=== PATIENT | female | born 1940 | race Caucasian/White ===

== ENCOUNTER 2016-10-02 22:23 | Observation (INO) | payer MEDICARE, OTHER ==
[~2016-10-02] VITALS: Ht 160 cm; Wt 85.0 kg
[2016-10-02 22:23] VITALS: BP 186/88; PULSE 80; RESP 15; TEMP 97.8; O2SAT 95
[~2016-10-02 22:23] MED LIST: ALBU6.7H INH; AMOX875T20 PO; CALCTAB32 OR; CLON0.5T PO; CYAN1000P IJ; ENAL20TA81 PO; FAMO20 PO; GLUCTAB OR; HYDR-2768; IBUP400T20 PO; MAGN400C2 PO; MEDR4PAK3 PO; NORV5TAB OR; RANI150; SOTA80TA PO; SULF500T35 PO; SYNT88TA OR; VITA200017 OR
[2016-10-02] MEDS ORDERED: MECLIZINE HCL 25 MG TAB PO ONE (22:30)
[2016-10-02] MEDS ORDERED: ONDANSETRON HCL 4 MG/2 ML VIAL IV PUSH ONE (22:30)
--- NOTE | 2016-10-02 22:43 | PD ---
HPI Chief Complaint: Dizziness Time Seen by Provider: 22:37 Travel History International Travel<30 days: No Contact w/Intl Traveler<30days: No Traveled to known affect area: No History of Present Illness HPI 76-year-old female that presents to the ED for evaluation of dizziness and chest pressure. Per patient she developed this around 6:00. Per patient nothing made it better or worst. Per patient she thought she was able to get better on its own. Per patient progressively got more severe around half an hour ago. Per patient she does some chest pressure as well. Per patient she feels like the room and herself were spinning but she also feels like his Pain. Per patient she's been having dry heaving which started as the symptoms progressively got worse. She has not thrown up. She denies any abdominal pain. She does state that she has an extensive history of cardiac disease including CHF, mitral and tricuspid valve regurgitation, on a pacemaker, A. fib , taking blood thinner as well as COPD, diabetes, hypertension and sleep apnea. Patient states that the chest pressure is not severe. Per patient he gets worse when she has a dry heaving. She has not abdominal pain that she dry heaves. She also complains of some back pain which appears to be chronic secondary to spinal stenosis. She denies any falls or injuries. No headache. No blurry vision or double vision. Per patient she feels very nauseous. She states compliance with medications. Per patient she had this time has no pain but the pain when she had it on her chest was about 2 out of 10. Pressure-like. PFSH Past Medical History Arthritis: Yes (RHEUMATOID) Asthma: No Autoimmune Disease: No Blood Disorders: No Heart Rhythm Problems: Yes Cancer: No Cardiovascular Problems: Yes (ABLATION - 2007) High Cholesterol: No Chemotherapy: No Chest Pain: Yes Congestive Heart Failure: No COPD: No Cerebrovascular Accident: No Diabetes: Yes (DIET CONTROLLED) Diminished Hearing: No Endocrine: No GERD: Yes Glaucoma: No Genitourinary: No Headaches: No Hepatitis: No Hiatal Hernia: Yes Hypertension: Yes Immune Disorder: No Kidney Stones: No Musculoskeletal: Yes Neurologic: No Psychiatric: No Reproductive: No Respiratory: No Myocardial Infarction: No Radiation Therapy: No Renal Failure: No Seizures: No Sickle Cell Disease: No Sleep Apnea: No Thyroid Disease: Yes (HYPERTHYROID) Ulcer: No Menopausal: Yes Past Surgical History Abdominal Surgery: Yes (CHOLECYSECTOMY, APPENDECTOMY, ) AICD: No Arteriovenous Shunt: No Cardiac Surgery: No Cholecystectomy: Yes Ear Surgery: No Endocrine Surgery: No Eye Surgery: No Genitourinary Surgery: Yes (BLADDER TACKING) Gynecologic Surgery: Yes (PARTIAL HYSTERECTOMY) Hysterectomy: Yes Insulin Pump: No Joint Replacement: No Oral Surgery: No Pacemaker: No Thoracic Surgery: Yes (LEFT BREAST BENIGN LUMPECTOMY) Other Surgery: Yes Social History Alcohol Use: No Tobacco Use: No Substance Use: No Allergies-Medications (Allergen,Severity, Reaction): Coded Allergies: Cymbalta (Verified Allergy, Severe, Headache, 04/24/12) Savella (Verified Allergy, Severe, Hypertension, 04/24/12) Ambien (Verified Allergy, Mild, Irritation, 04/24/12) Ephedrine (Verified Allergy, Mild, Tachycardia, 04/24/12) Reported Meds & Prescriptions Reported Meds & Active Scripts Active Amoxicillin/Clavulanate P (Amoxicillin/Clavulanate Potassium) 875 Mg Tab 875 Mg PO BID Medrol Dosepak (Methylprednisolone) 4 Mg Steven 4 Mg PO DIRECTED TAKE DIRECTED Proventil Hfa (Albuterol Sulfate) 6.7 Gm Aero 1-2 Puff INH Q4-6HPRN * SHAKE WELL BEFORE USE * Reported Pepcid 20 Mg Tab (Famotidine) 20 Mg Tab 20 Mg PO DAILYPRN Zantac 150 Mg Tab (Ranitidine HCl) 150 Mg Tab 150 Mg .XX DAILYPRN Motrin (Ibuprofen) 400 Mg Tab 400 Mg PO ONCE Sulfasalazine 500 Mg Tab 500 Mg PO QID Metformin Hcl (Metformin HCl) 500 Mg Tab 500 Mg OR DAILY Vitamin D3 (Cholecalciferol) 2,000 Unit Chw 2,000 Iu OR DAILY Magnesium (Magnesium Oxide (Mg Supplement) 400 Mg Cap 400 Mg PO TID Calcium Citrate + D (Calcium Citrate-Vitamin D) + D Tab 1,000 D OR DAILY Cyanocobalamin 1,000 Mcg/1 Ml Inj 1,000 Mcg IJ MONTHLY Synthroid (Levothyroxine Sodium) 88 Mcg Tab 88 Mcg OR DAILY Clonazepam 0.5 Mg Tab 0.5 Mg PO DAILY Norvasc (Amlodipine Besylate) 5 Mg Tab 2.5 Mg OR BID Sotalol Hcl (Sotalol HCl) 80 Mg Tab 80 Mg PO BID Vasotec (Enalapril Maleate) 20 Mg Tab 10 Mg PO BID Hctz (Hydrochlorothiazide) 25 Mg Tab Review of Systems Except as stated in HPI: all other systems reviewed are Neg Physical Exam Narrative GENERAL: SKIN: Warm and dry. HEAD: Atraumatic. Normocephalic. EYES: Pupils equal and round 4 mm reactive to light and accommodation. No scleral icterus. No injection or drainage. ENT: No nasal bleeding or discharge. Mucous membranes pink and moist. Tongue is midline. No uvula deviation. NECK: Trachea midline. No JVD. CARDIOVASCULAR: Regular rate and rhythm. No murmurs, S3, S4. RESPIRATORY: No accessory muscle use. Clear to auscultation. Breath sounds equal bilaterally. GASTROINTESTINAL: Abdomen soft, non-tender, nondistended. Hepatic and splenic margins not palpable. MUSCULOSKELETAL: Extremities without clubbing, cyanosis, or edema. No obvious deformities. Full ROM of the upper and lower extremities bilaterally. 2+ pulses. NEUROLOGICAL: Awake and alert. No obvious cranial nerve deficits. Motor grossly within normal limits. Five out of 5 muscle strength in the arms and legs. Normal speech. PSYCHIATRIC: Appropriate mood and affect; insight and judgment normal. Data Data Orders Electrocardiogram (10/02/16 22:26) Complete Blood Count With Diff (10/02/16 22:26) Comprehensive Metabolic Panel (10/02/16:26) Ckmb (Isoenzyme) Profile (10/02/16 22:26) Troponin I (10/02/16 22:26) B-Type Natriuretic Peptide (10/02/16 22:26) Prothrombin Time / Inr (Pt) (10/02/16 22:26) Act Partial Throm Time (Ptt) (10/02/16 22:26) Lipase (10/02/16:26) Urinalysis - C+S If Indicated (10/02/16 22:26) Magnesium (Mg) (10/02/16 22:26) Thyroid Stimulating Hormone (10/02/16 22:26) Chest, Single Ap (10/02/16 22:26) Ct Brain W/O Iv Contrast(Rout) (10/02/16 22:26) Iv Access Insert/Monitor (10/02/16 22:26) Ecg Monitoring (10/02/16 22:26) Oximetry (10/02/16 22:26) Ondansetron Inj (Zofran Inj) (10/02/16 22:30) Meclizine (Antivert) (10/02/16 22:30) MDM Medical Decision Making Medical Screen Exam Complete: Yes Emergency Medical Condition: Yes Medical Record Reviewed: Yes Differential Diagnosis Syncope versus dizziness versus ACS versus chest pain versus a typical chest pain versus hypotension versus orthostatic hypotension Narrative Course 76-year-old female that presents to the ED for evaluation of dizziness. Patient was properly examined and was found to have signs and symptoms of unclear etiology this time. Definite concern for ACS as well as vertigo. Accommodation is times for labs and imaging. Patient agrees with this plan. Patient was given meclizine as well as Zofran. Patient will be signed out to my attending physician with Dr. Kraft pending labs and disposition. Manuel Turner Oct 02, 2016 22:43
[2016-10-02 23:02] LABS: AUTOMATED NEUTROPHIL # 8.1 TH/MM3 (1.8-7.7); BASOPHIL # 0.1 TH/MM3 (0-0.2); BASOPHIL % 0.6 % (0.0-2.0); EOSINOPHIL # 0.3 TH/MM3 (0-0.4); EOSINOPHIL % 2.9 % (0.0-4.0); HEMATOCRIT 39.8 % (35.0-46.0); HEMO FLAGS DIFF FINAL; LYMPH % 13.4 % (9.0-44.0); LYMPHOCYTE # 1.4 TH/MM3 (1.0-4.8); MEAN CELL VOLUME 88.7 FL (80.0-100.0); MEAN CORPUSCULAR HGB CONC 33.9 % (32.0-36.0); MONO % 5.8 % (0.0-8.0); NEUT % 77.3 % (16.0-70.0); PLATELET COUNT 187 TH/MM3 (150-450); RED BLOOD COUNT 4.49 MIL/MM3 (4.00-5.30); RED CELL DISTRIBUTION WIDTH 13.6 % (11.6-17.2); WHITE BLOOD COUNT 10.4 TH/MM3 (4.0-11.0)
--- NOTE | 2016-10-02 23:09 | RADRPT ---
EXAM DATE/TIME: 10/02/2016 22:40 [facility] COMPARISON: No previous studies available for comparison. INDICATIONS : Syncope. Weakness. MEDICAL HISTORY : None. SURGICAL HISTORY : None. ENCOUNTER: Initial ACUITY: 1 day PAIN SCORE: 6/10 LOCATION: Bilateral chest FINDINGS: A single view of the chest demonstrates the lungs to be symmetrically aerated without evidence of mas s, infiltrate or effusion. The cardiomediastinal contours are unremarkable. Osseous structures are intact. CONCLUSION: Normal examination. Left subclavian tripolar pacer in good position. Abilio Ahuja MD on October 02, 2016 at 23:07 Board Certified Radiologist. This report was verified electronically.
[2016-10-02 23:14] LABS: APTT (PATIENT) 34.6 SEC (24.3-30.1); INTERNATIONAL NORMALIZED RATIO 2.7 RATIO; PROTHROMBIN TIME - PATIENT 31.5 SEC (9.8-11.6)
[2016-10-02 23:21] LABS: ALT (GPT) 71 U/L (10-53); ANION GAP 9 MEQ/L (5-15); AST (GOT) 100 U/L (15-37); BICARBONATE 28.9 MEQ/L (21.0-32.0); BLOOD UREA NITROGEN 22 MG/DL (7-18); CHLORIDE 103 MEQ/L (98-107); GLOMERULAR FILTRATION RATE 62 ML/MIN (>89); POTASSIUM 3.8 MEQ/L (3.5-5.1); SODIUM (NA) 141 MEQ/L (136-145)
[2016-10-02] MEDS ORDERED: FURO80TA PO (23:22)
[2016-10-02] MEDS ORDERED: ARMO30TA PO (23:22)
[2016-10-02] MEDS ORDERED: CYAN1000P IM (23:22)
[2016-10-02] MEDS ORDERED: CARV12.52 PO (23:22)
[2016-10-02] MEDS ORDERED: CHOL1CAP13 PO (23:22)
[2016-10-02] MEDS ORDERED: METF500T PO (23:22)
[2016-10-02] MEDS ORDERED: ENAL10TA PO (23:22)
[2016-10-02] MEDS ORDERED: MAGN200T PO (23:22)
[2016-10-02] MEDS ORDERED: FOLI1TAB6 (23:22)
[2016-10-02] MEDS ORDERED: ALEN1TAB48 PO (23:22)
[2016-10-02] MEDS ORDERED: POTA-163 PO (23:22)
[2016-10-02] MEDS ORDERED: WARF-23 PO (23:22)
[2016-10-02] MEDS ORDERED: CLON0.5T PO (23:22)
[2016-10-02] MEDS ORDERED: ATOR10TA15 PO (23:22)
[2016-10-02 23:30] VITALS: BP_SYST 169; BP_SYST 186; BP_SYST 187; BP_DIAS 77; BP_DIAS 84; BP_DIAS 88; RESP 16; RESP 19; RESP 20
[2016-10-02 23:30] LABS: ALKALINE PHOSPHATASE 56 U/L (45-117); CREATINE KINASE 146 U/L (26-192); TOTAL BILIRUBIN ADULT 0.9 MG/DL (0.2-1.0)
--- NOTE | 2016-10-02 23:37 | RADRPT ---
EXAM DATE/TIME: 10/02/2016 23:13 [facility] COMPARISON: No previous studies available for comparison. INDICATIONS : Syncope. RADIATION DOSE: 30.85 CTDIvol (mGy) MEDICAL HISTORY : Gastroesophageal reflux disease. Hypertension. Diabetes mellitus type 2. SURGICAL HISTORY : Appendectomy. Cholecystectomy.Hysterectomy.Left breast lumpectomy. ENCOUNTER: Initial ACUITY: 1 day PAIN SCALE: 0/10 LOCATION: cranial TECHNIQUE: Multiple contiguous axial images were obtained of the head. Using automated exposure control and adj ustment of the mA and/or kV according to patient size, radiation dose was kept as low as reasonably a chievable to obtain optimal diagnostic quality images. DICOM format image data is available electro nically for review and comparison. FINDINGS: CEREBRUM: The ventricles are normal for age. No evidence of midline shift, mass lesion, hemorrhage or acute in farction. No extra-axial fluid collections are seen. POSTERIOR FOSSA: The cerebellum and brainstem are intact. The 4th ventricle is midline. The cerebellopontine angle i s unremarkable. EXTRACRANIAL: The visualized portion of the orbits is intact. SKULL: The calvaria is intact. No evidence of skull fracture. CONCLUSION: Normal examination. On the first image there is some soft tissue fullness in the anterior aspect of t he foramen magnum which could be prominent vasculature. No evidence of an acute fracture or traumati c injury is identified. Outpatient brain MRI could be performed to further evaluate this area. Abilio Ahuja MD on October 02, 2016 at 23:35 Board Certified Radiologist. This report was verified electronically.
[2016-10-02 23:43] LABS: CKMB 4.9 NG/ML (0.5-3.6)
[2016-10-02] MEDS ORDERED: SODIUM CHLOR 0.9% 1000 ML INJ 1,000 ML IV SCH (23:45)
[2016-10-02] MEDS ORDERED: SODIUM CHLORID 0.9% 500 ML INJ 500 ML IV ONE (23:45)
--- NOTE | 2016-10-02 23:48 | PD ---
Physical Exam Date Seen by Provider: Oct 02, 2016 Time Seen by Provider: 23:00 Narrative I am seeing the patient with Sabino Turner PA-C. 76-year-old female with history of paced rhythm, presents today with complaints of dizziness with associated nausea vomiting. Patient also reports chest pressure. Patient reports chest pressure at 2 out of 10 in intensity. She reports the dizziness is more positional in nature. There is no dizziness when not moving or standing. Patient does have a history of atrial fibrillation and has a pacemaker in place. The patient does have a paced rhythm with a rate of 80. She describes the chest pain is chest pressure. No radiation. Data Data Last Documented VS Vital Signs Date Time Temp Pulse Resp B/P Pulse Ox O2 Delivery O2 Flow Rate FiO2 10/02/16 23:30 80 16 169/77 81 20 186/88 80 19 187/84 10/02/16 22:23 97.8 95 10/02/16 22:23 Room Air Orders Electrocardiogram (10/02/16 22:26) Complete Blood Count With Diff (10/02/16 22:26) Comprehensive Metabolic Panel (10/02/16 22:26) Ckmb (Isoenzyme) Profile (10/02/16 22:26) Troponin I (10/02/16 22:26) B-Type Natriuretic Peptide (10/02/16 22:26) Prothrombin Time / Inr (Pt) (10/02/16 22:26) Act Partial Throm Time (Ptt) (10/02/16 22:26) Lipase (10/02/16 22:26) Urinalysis - C+S If Indicated (10/02/16 22:26) Magnesium (Mg) (10/02/16 22:26) Thyroid Stimulating Hormone (10/02/16 22:26) Chest, Single Ap (10/02/16 22:26) Ct Brain W/O Iv Contrast(Rout) (10/02/16 22:26) Iv Access Insert/Monitor (10/02/16 22:26) Ecg Monitoring (10/02/16 22:26) Oximetry (10/02/16 22:26) Ondansetron Inj (Zofran Inj) (10/02/16 22:30) Meclizine (Antivert) (10/02/16 22:30) Orthostatic Vital Signs (10/02/16 22:41) CKMB (10/02/16 22:15) CKMB% (10/02/16 22:15) Sodium Chlorid 0.9% 500 Ml Inj (Ns 500 M (10/02/16 23:45) Sodium Chlor 0.9% 1000 Ml Inj (Ns 1000 M (10/02/16 23:45) Bedside Glucose MARIA LUISA.AC&HS (10/03/16 01:56) Blood Glucose Goal (Criteria) (10/03/16 01:56) Hypoglycemia 70 Mg/Dl Or < (10/03/16 01:56) Notify Dr: Other (10/03/16 01:56) Dextrose 50% In Pato (Vial) Inj (D50w (Vi (10/03/16 02:00) Glucagon Inj (Glucagon Inj) (10/03/16 02:00) Insulin Aspart Supplemtl Scale (Novolog (10/03/16 07:00) Place In Observation (10/03/16 ) Vital Signs (Adult) Q4H (10/03/16 01:56) Neuro Checks Q4H (10/03/16 01:56) Activity Oob With Assistance (10/03/16 01:56) Intake + Output MARIA LUISA.QSHIFT (10/03/16 01:56) Diet 1800 Ada Cons Carb (10/03/16 Breakfast) Sodium Chlor 0.9% 1000 Ml Inj (Ns 1000 M (10/03/16 01:56) Sodium Chloride 0.9% Flush (Ns Flush) (10/03/16 02:00) Sodium Chloride 0.9% Flush (Ns Flush) (10/03/16 09:00) Ondansetron Inj (Zofran Inj) (10/03/16 02:00) Comprehensive Metabolic Panel (10/04/16 06:00) Complete Blood Count With Diff (10/04/16 06:00) Prothrombin Time / Inr (Pt) (10/04/16 06:00) Pt Request For Service (10/03/16 01:56) Acetaminophen (Tylenol) (10/03/16 02:00) Docusate Sodium-Senna (Toya-Colace) (10/03/16 09:00) Magnesium Hydroxide Liq (Milk Of Magnesi (10/03/16 02:00) Sennosides (Senokot) (10/03/16 02:00) Bisacodyl Supp (Dulcolax Supp) (10/03/16 02:00) Lactulose Liq (Lactulose Liq) (10/03/16 02:00) Cta Neck W Iv Contrast W 3d (10/03/16 ) Cta Brain W Iv Contrast W 3d (10/03/16 ) Meclizine (Antivert) (10/03/16 02:00) Lorazepam Inj (Ativan Inj) (10/03/16 02:00) Atorvastatin (Lipitor) (10/03/16 21:00) Carvedilol (Coreg) (10/03/16 09:00) Clonazepam (Klonopin) (10/03/16 02:00) Furosemide (Lasix) (10/03/16 09:00) Warfarin (Coumadin) (10/03/16 16:00) Warfarin (Coumadin) Pt Teach (Coumadin B (10/03/16 16:00) Admit Order (Ed Use Only) (10/03/16 02:19) Labs Laboratory Tests Test 10/02/16 22:15 White Blood Count 10.4 TH/MM3 Red Blood Count 4.49 MIL/MM3 Hemoglobin 13.5 GM/DL Hematocrit 39.8 % Mean Corpuscular Volume 88.7 FL Mean Corpuscular Hemoglobin 30.0 PG Mean Corpuscular Hemoglobin 33.9 % Concent Red Cell Distribution Width 13.6 % Platelet Count 187 TH/MM3 Mean Platelet Volume 10.6 FL Neutrophils (%) (Auto) 77.3 % Lymphocytes (%) (Auto) 13.4 % Monocytes (%) (Auto) 5.8 % Eosinophils (%) (Auto) 2.9 % Basophils (%) (Auto) 0.6 % Neutrophils # (Auto) 8.1 TH/MM3 Lymphocytes # (Auto) 1.4 TH/MM3 Monocytes # (Auto) 0.6 TH/MM3 Eosinophils # (Auto) 0.3 TH/MM3 Basophils # (Auto) 0.1 TH/MM3 CBC Comment DIFF FINAL Differential Comment Prothrombin Time 31.5 SEC Prothromb Time International 2.7 RATIO Ratio Activated Partial 34.6 SEC Thromboplast Time Sodium Level 141 MEQ/L Potassium Level 3.8 MEQ/L Chloride Level 103 MEQ/L Carbon Dioxide Level 28.9 MEQ/L Anion Gap 9 MEQ/L Blood Urea Nitrogen 22 MG/DL Creatinine 0.89 MG/DL Estimat Glomerular Filtration 62 ML/MIN Rate Random Glucose 171 MG/DL Calcium Level 8.5 MG/DL Magnesium Level 2.0 MG/DL Total Bilirubin 0.9 MG/DL Aspartate Amino Transf 100 U/L (AST/SGOT) Alanine Aminotransferase 71 U/L (ALT/SGPT) Alkaline Phosphatase 56 U/L Total Creatine Kinase 146 U/L Creatine Kinase MB 4.9 NG/ML Troponin I LESS THAN 0.02 NG/ML B-Type Natriuretic Peptide 259 PG/ML Total Protein 6.7 GM/DL Albumin 3.6 GM/DL Lipase 138 U/L Thyroid Stimulating Hormone 5.560 uIU/ML 3rd Gen [facility] Medical Record Reviewed: Yes Supervised Visit with MADELINE: Yes Narrative Course 76-year-old female presents with complaints of dizziness, nausea vomiting, shortness of breath and chest pressure. The patient has history of atrial fibrillation and is on anticoagulation for this. Patient also has a paced rhythm on EKG. She's been given meclizine I V times one dose. She's been given I V fluids. Her BUN and creatinine are slightly elevated. Given the fact that she has dizziness and is still slightly dizzy after the meclizine, we will bring her in observation and get a CTA. She cannot receive an MRI because of her pacemaker. She'll have continued I dehydration. Case was discussed with Dr. Watkins who is agreeable to the observation placement. Diagnosis Primary Impression: vertiginous symptoms Additional Impressions: Dehydration Chest pain Admitting Information Admitting Physician Requests: Observation Khai Kraft MD Oct 02, 2016 23:48
[2016-10-03] MEDS ORDERED: MECLIZINE HCL 25 MG TAB PO PRN (02:00)
[2016-10-03] MEDS ORDERED: DEXTROSE 50% IN WATER 50 ML VIAL(D50) IV PRN (02:00)
[2016-10-03] MEDS ORDERED: LORazepam 2 MG/ML VIAL IV PUSH PRN (02:00)
[2016-10-03] MEDS ORDERED: ACETAMINOPHEN 325 MG TAB PO PRN (02:00)
[2016-10-03] MEDS ORDERED: ONDANSETRON HCL 4 MG/2 ML VIAL IVP PRN (02:00)
[2016-10-03] MEDS ORDERED: SENNOSIDES 8.6 MG TAB PO PRN (02:00)
[2016-10-03] MEDS ORDERED: BISACODYL 10 MG SUPP RECTAL PRN (02:00)
[2016-10-03] MEDS ORDERED: LACTULOSE SYRUP 20 GM/30 ML CUP PO PRN (02:00)
[2016-10-03] MEDS ORDERED: MAGNESIUM HYDROXIDE SUSP 30 ML CUP PO PRN (02:00)
[2016-10-03] MEDS ORDERED: clonazePAM 0.5 MG TAB PO PRN (02:00)
[2016-10-03] MEDS ORDERED: SODIUM CHLORIDE 0.9% FLUSH 10 ML FLUSH IV FLUSH PRN (02:00)
[2016-10-03] MEDS ORDERED: GLUCAGON 1 MG/ML VIAL OTHER PRN (02:00)
[2016-10-03] MEDS: SODIUM CHLOR 0.9% 1000 ML INJ 1,000 ML IV SCH ×2 (02:54→11:47)
[2016-10-03] MEDS ORDERED: IOHEXOL 350 MG/ML 10 ML VIAL (for RAD DIAG) IV ONE (03:10)
--- NOTE | 2016-10-03 03:27 | RADRPT ---
EXAM DATE/TIME: 10/03/2016 02:51 [facility] COMPARISON: No previous studies available for comparison. INDICATIONS : Dizziness. IV CONTRAST: 100 cc Omnipaque 350 (iohexol) IV ; Cumulative dose for multiple exams. RADIATION DOSE: 13.96 CTDIvol (mGy) ; Combined studies MEDICAL HISTORY : Hypertension. Cardiovascular disease Gastroesophageal reflux disease. SURGICAL HISTORY : Pacemaker. Appendectomy.Cholecystectomy.partial hysterectomy, bilateral knee replacements ENCOUNTER: Initial ACUITY: 1 day PAIN SCALE: 0/10 LOCATION: cranial TECHNIQUE: Volumetric scanning was performed using a multi-row detector CT scanner. The data was post processed with a variety of visualization algorithms including full volume maximum intensity projection, multi -planar sliding thin slab reformation, curved planar reformation, and surface rendering techniques. Using automated exposure control and adjustment of the mA and/or kV according to patient size, radiat ion dose was kept as low as reasonably achievable to obtain optimal diagnostic quality images. DICO M format image data is available electronically for review and comparison. FINDINGS: There is excellent visualization of the major intracranial arteries out to the second-order branch ve ssels. There is no evidence for aneurysm, vessel truncation or stenosis, and no evidence for vascula r malformation. Neither of the middle cerebral arteries are particularly prominent in size, but there is no evidence of aneurysm or stenosis CONCLUSION: Normal examination. Abilio Ahuja MD on October 03, 2016 at 3:25 Board Certified Radiologist. This report was verified electronically.
--- NOTE | 2016-10-03 03:30 | RADRPT ---
EXAM DATE/TIME: 10/03/2016 02:53 [facility] COMPARISON: No previous studies available for comparison. INDICATIONS : Dizziness. IV CONTRAST: 100 cc Omnipaque 350 (iohexol) IV ; Cumulative dose for multiple exams. RADIATION DOSE: 13.96 CTDIvol (mGy) ; Combined studies MEDICAL HISTORY : Hypertension. Cardiovascular disease Gastroesophageal reflux disease. SURGICAL HISTORY : Pacemaker. Appendectomy.Cholecystectomy.partial hysterectomy, bilateral knee replacements ENCOUNTER: Initial ACUITY: 1 day PAIN SCALE: 0/10 LOCATION: neck Elevated flow velocities and ICA/CCA ratios have been found to correlate with increased degrees of vessel stenosis, calculated as percentage of diameter relative to a normal segment of distal ICA/CCA. TECHNIQUE: Volumetric scanning was performed using a multirow detector CT scanner. The data was post processed with a variety of visualization algorithms including full-volume maximum intensity projection, multip lanar sliding thin-slab reformation, curved-planar reformation, and surface-rendering techniques. Us ing automated exposure control and adjustment of the mA and/or kV according to patient size, radiatio n dose was kept as low as reasonably achievable to obtain optimal diagnostic quality images. DICOM f ormat image data is available electronically for review and comparison. FINDINGS: AORTIC ARCH: There is a three-vessel origin of the great vessels from the aorta. No evidence of ostial narrowing. RIGHT CAROTID: The common carotid artery is intact. The carotid bulb has a normal configuration without ulceration o r narrowing. The internal carotid artery lumen is smooth without stenosis. The external carotid ivan ry is intact. LEFT CAROTID: The common carotid artery is intact. The carotid bulb has a normal configuration without ulceration or narrowing. The internal carotid artery lumen is smooth without stenosis. The external carotid ar libby is intact. VERTEBRALS: The vertebral arteries have an asymmetric diameter, the left vertebral is dominant. No stenotic lesi ons are seen. CONCLUSION: Unremarkable carotid CTA except for marked tortuosity of the internal carotid vessels Abiloi Ahuja MD on October 03, 2016 at 3:27 Board Certified Radiologist. This report was verified electronically.
[2016-10-03 03:46] VITALS: BP 172/76; PULSE 80; RESP 16; O2SAT 96
--- NOTE | 2016-10-03 03:56 | HHI.HP ---
HPI Service [facility] Primary Care Physician Becky Kraft MD Admission Diagnosis vertiginous symptoms, chest pain, Diagnoses: (1) Chest pain Diagnosis: Principal (2) Vertigo Diagnosis: Principal (3) Dehydration Diagnosis: Principal (4) A-fib Diagnosis: Principal (5) DM (diabetes mellitus) Diagnosis: Principal Travel History International Travel<30 Days: No Contact w/Intl Traveler <30 Da: No Traveled to Known Affected Are: No History of Present Illness This is a 76-year-old female with a PMH of HTN, Rheumatoid Arthritis, A. fib on Coumadin, CAD, COPD, CHF (unknown EF) and DM who presented to the ER with complaints of dizziness starting earlier this evening. States felt room was spinning. Reports associated chest pain during spells in addition to nausea but no vomiting. Denies fever, chills, cough. On arrival, BP 186/88, HR 80, O2 sat 95% on RA, Afebrile. Orthostatic Vital Signs positive. CBC unremarkable. Chemistry essentially unremarkable except for BUN 22, GFR 62. Troponin negative. BNP 259. INR 2.7. CXR with no acute findings. CT Head and normal. S/p Meclizine in ER w/ some improvement. Review of Systems Except as stated in HPI: all other systems reviewed are Neg ROS: 14 point review of systems otherwise negative. Past Family Social History Past Medical History PMH: HTN, Rheumatoid Arthritis, A. fib on Coumadin, CAD, COPD, CHF (unknown EF ) and DM Past Surgical History PAST SURGICAL HISTORY: Cholecystectomy, Appendectomy, Partial Hysterectomy, Left Breast Lumpectomy Allergies: Coded Allergies: Cephalosporins (Verified Allergy, Severe, 10/02/16) Cymbalta (Verified Allergy, Severe, Headache, 10/02/16) Savella (Verified Allergy, Severe, Hypertension, 10/02/16) Ambien (Verified Allergy, Mild, Irritation, 10/02/16) Ephedrine (Verified Allergy, Mild, Tachycardia, 10/02/16) Cefuroxime sodium (Verified Allergy, Unknown, 10/02/16) Epinephrine (Verified Allergy, Unknown, 10/02/16) Floxcin (Verified Allergy, Unknown, 10/02/16) Hydrocodone (Verified Allergy, Unknown, 10/02/16) Xarelto (Verified Allergy, Unknown, 10/02/16) Family History PAST FAMILY HISTORY: Reviewed. No h/o DM or CAD Social History PAST SOCIAL HISTORY: Negative for alcohol, tobacco or drugs. Physical Exam Vital Signs Vital Signs Date Time Temp Pulse Resp B/P Pulse Ox O2 Delivery O2 Flow Rate FiO2 10/02/16 23:30 80 16 169/77 81 20 186/88 80 19 187/84 10/02/16 22:23 97.8 80 15 186/88 95 10/02/16 22:23 80 15 96 Room Air Physical Exam PE: GENERAL: Very pleasant elderly white female in no acute distress. HEENT: PERRLA, EOMI. No scleral icterus or conjunctival pallor. No lid lag or facial droop. CARDIOVASCULAR: Regular rate and rhythm. No obvious murmurs to auscultation. No chest tenderness to palpation. RESPIRATORY: No obvious rhonchi or wheezing. Clear to auscultation. Breath sounds equal bilaterally. GASTROINTESTINAL: Abdomen soft, non-tender, nondistended. BS normal. MUSCULOSKELETAL: Extremities without clubbing, cyanosis, or edema. No obvious deformities. NEUROLOGICAL: Awake, alert and oriented x4. No focal neurologic deficits. Moving both upper and lower extremities spontaneously. Laboratory Laboratory Tests Test 10/02/16 22:15 White Blood Count 10.4 Red Blood Count 4.49 Hemoglobin 13.5 Hematocrit 39.8 Mean Corpuscular Volume 88.7 Mean Corpuscular Hemoglobin 30.0 Mean Corpuscular Hemoglobin 33.9 Concent Red Cell Distribution Width 13.6 Platelet Count 187 Mean Platelet Volume 10.6 Neutrophils (%) (Auto) 77.3 Lymphocytes (%) (Auto) 13.4 Monocytes (%) (Auto) 5.8 Eosinophils (%) (Auto) 2.9 Basophils (%) (Auto) 0.6 Neutrophils # (Auto) 8.1 Lymphocytes # (Auto) 1.4 Monocytes # (Auto) 0.6 Eosinophils # (Auto) 0.3 Basophils # (Auto) 0.1 CBC Comment DIFF FINAL Differential Comment Prothrombin Time 31.5 Prothromb Time International 2.7 Ratio Activated Partial 34.6 Thromboplast Time Sodium Level 141 Potassium Level 3.8 Chloride Level 103 Carbon Dioxide Level 28.9 Anion Gap 9 Blood Urea Nitrogen 22 Creatinine 0.89 Estimat Glomerular Filtration 62 Rate Random Glucose 171 Calcium Level 8.5 Magnesium Level 2.0 Total Bilirubin 0.9 Aspartate Amino Transf 100 (AST/SGOT) Alanine Aminotransferase 71 (ALT/SGPT) Alkaline Phosphatase 56 Total Creatine Kinase 146 Creatine Kinase MB 4.9 Troponin I LESS THAN 0.02 B-Type Natriuretic Peptide 259 Total Protein 6.7 Albumin 3.6 Lipase 138 Thyroid Stimulating Hormone 5.560 3rd Gen Result Diagram: 10/02/16221410/02/162214 Assessment and Plan Problem List: (1) Vertigo ICD Code: R42 Status: Acute (2) Dehydration ICD Code: E86.0 Status: Acute (3) Chest pain ICD Code: R07.9 Status: Acute (4) A-fib ICD Code: I48.91 Status: Acute (5) DM (diabetes mellitus) ICD Code: E11.9 Status: Acute Assessment and Plan A/P: 1. Vertigo: Likely secondary to BPPV and dehydration, however concern for possible underlying CVA. CT Head w/ no acute findings, images reviewed by me. Unable to undergo MRI due to Pacemaker, will check CTA Neck/Brain for further eval. IVF for hydration. Meclizine prn. PT for eval/tx. 2. Dehydration: GFR 62, BUN 22, previously normal 08/31/06. Check U/a for possible UTI, IVF for hydration, repeat labs in am. 3. Chest Pain: Atypical. Initial trop negative, EKG w/ no acute ischemia. Check serial cardiac enzymes for further eval. 4. A-fib: Chronic. On Coumadin, INR therapeutic at 2.7. Will resume Coumadin , check INR in am. 5. DM: Sliding scale w/ Accu-Cheks. 6. DVT Prophylaxis: Coumadin as above. 7. Social work for d/c planning as needed. 8. Case discussed w/ ER physician at length. Cait Hay MD Oct 03, 2016 03:55
[2016-10-03 04:04] LABS: BACTERIA, URINE RARE /hpf; BLOOD, URINE NEG (NEG); COMMENT (UR) CULTURE INDICATED; CULTURE IF INDICATED CULTURE INDICATED; GLUCOSE,URINE NEG (NEG); KETONE, URINE TRACE mg/dL (NEG); URINE COLOR YELLOW (YELLW/STRAW)
[2016-10-03 04:05] LABS: NITRITE,URINE POS (NEG)
[2016-10-03 04:53] VITALS: BP 141/65; PULSE 80; RESP 18; TEMP 98.4; O2SAT 98
[2016-10-03] MEDS: INSULIN ASPART SUPPLEMENTAL SCALE SQ SCH ×2 (06:36→11:00)
[2016-10-03 07:37] VITALS: BP 164/81; PULSE 80; RESP 18; TEMP 97.5; O2SAT 99
[2016-10-03] MEDS ORDERED: DOCUSATE SODIUM 50 MG/SENNA 8.6 MG TAB PO SCH (09:00)
[2016-10-03] MEDS ORDERED: NITROFURANTOIN MONOHYD MACROCR 100 MG CAP PO SCH (09:00)
[2016-10-03] MEDS ORDERED: CARVEDILOL 12.5 MG TAB PO SCH (09:00)
[2016-10-03] MEDS ORDERED: SODIUM CHLORIDE 0.9% FLUSH 10 ML FLUSH IV FLUSH SCH (09:00)
[2016-10-03] MEDS ORDERED: FUROSEMIDE 80 MG TAB PO SCH (09:00)
[2016-10-03 09:25] LABS: THYROXINE (T4) 8.1 MCG/DL (4.8-13.9)
[2016-10-03 09:33] LABS: FREE T3 1.71 PG/ML (2.18-3.98)
[2016-10-03] MEDS ORDERED: THYROID 30 MG TAB PO SCH (11:00)
--- NOTE | 2016-10-03 11:03 | HHI.PR ---
Subjective Remarks Follow-up for dizziness. The patient is seen ambulating the unit with no difficulties. She denies any further symptoms and is asking to go home. Cleared by PT. She would like to follow-up with her PCP regarding further workup. The patient states that yesterday around 6 PM she began having dizziness like she was going to pass out as well as room spinning sensation. She had associated palpitations and nausea when she was dizzy. 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 She denies having any chest pain or shortness breath, which she is adamant about. She denies any recent illness, fever, chills, urinary symptoms, diarrhea, vomiting. She is not clear on what her allergies were to medications in the past. She states she is taking penicillin all her life. She states she had a recent UTI a few weeks ago treated with Cipro, although "Floxin" is listed as an allergy. She denies any history of anaphylaxis. Tolerating Macrobid well. Objective Vitals Vital Signs Date Time Temp Pulse Resp B/P Pulse Ox O2 Delivery O2 Flow Rate FiO2 10/03/16 07:37 97.5 80 18 164/81 99 10/03/16 04:53 98.4 80 18 141/65 98 10/03/16 03:46 80 16 172/76 96 Room Air 10/02/16 23:30 80 16 169/77 81 20 186/88 80 19 187/84 10/02/16 22:23 97.8 80 15 186/88 95 10/02/16 22:23 80 15 96 Room Air I/O 10/02/16 10/02/16 10/02/16 10/03/16 10/03/16 10/03/16 07:00 15:00 23:00 07:00 15:00 23:00 Intake Total 660 ml Balance 660 ml Intake Oral 460 ml IV Total 200 ml # Voids 1 Result Diagram: 10/02/16221410/02/162214 Imaging Last Impressions Neck CTA 10/03/16 0000 Signed Impressions: Service Date/Time: Monday, October 03, 2016 02:53 - CONCLUSION: Unremarkable carotid CTA except for marked tortuosity of the internal carotid vessels Abilio Ahuja MD Head CTA 10/03/16 0000 Signed Impressions: Service Date/Time: Monday, October 03, 2016 02:51 - CONCLUSION: Normal examination. Abilio Ahuja MD Head CT 10/02/162225 Signed Impressions: Service Date/Time: Sunday, October 02, 2016 23:13 - CONCLUSION: Normal examination. On the first image there is some soft tissue fullness in the anterior aspect of the foramen magnum which could be prominent vasculature. No evidence of an acute fracture or traumatic injury is identified. Outpatient brain MRI could be performed to further evaluate this area. Abilio Ahuja MD Chest X-Ray 10/02/162225 Signed Impressions: Service Date/Time: Sunday, October 02, 2016 22:40 - CONCLUSION: Normal examination. Left subclavian tripolar pacer in good position. Abilio Ahuja MD Objective Remarks GENERAL: Well-developed well-nourished. In no acute distress. SKIN: Warm and dry. No lesions noted. HEENT: Normocephalic. Pupils equal and round. Mucous membranes pink and moist. CARDIOVASCULAR: Regular rate and rhythm. No murmur appreciated. RESPIRATORY: No accessory muscle use. Clear to auscultation. Breath sounds equal bilaterally. GASTROINTESTINAL: Abdomen soft, non-tender, nondistended. Bowel sounds x4. MUSCULOSKELETAL: No obvious deformities. No clubbing or cyanosis. No edema. NEUROLOGICAL: Awake and alert. No focal neurological deficits. Moves upper and lower extremities spontaneously. Normal speech. PSYCHIATRIC: Appropriate mood and affect; insight and judgment normal. A/P Problem List: (1) Vertigo ICD Code: R42 Status: Resolved (2) A-fib ICD Code: I48.91 Status: Chronic (3) DM (diabetes mellitus) ICD Code: E11.9 Status: Chronic Assessment and Plan 76-year-old female with a PMH of HTN, Rheumatoid Arthritis, A. fib on Coumadin, CAD, COPD, CHF (unknown EF) and DM who presented with complaints of dizziness Dizziness: Vertigo vs near syncope. Possibly exacerbated by current infection. Symptoms have resolved at this time. Reviewed: EKG with ventricular paced rhythm and regular rate. Troponin negative 2. CT Head w/ no acute findings. Head and neck CTA with no acute findings. UA with evidence of UTI. Afebrile with no leukocytosis. Non- orthostatic. No signs of dehydration. INR is therapeutic. -PT consulted, no restrictions -Received IVF for hydration. -Meclizine prn. -Telemetry monitoring Palpitations: The patient does have a history of A. fib and left ventricular arrhythmia, which has been controlled here. Denies any chest pain or shortness of breath. Troponin negative 2. Patient does have subclinical hypothyroidism , as below. Coumadin is therapeutic at 2.7, continue. Subclinical hypothyroidism: TSH is mildly elevated, T3 is mildly decreased, T4 within normal limits. Possibly reactive secondary to acute infection as below. Recommended to repeat thyroid function in 4-6 weeks as outpatient. Continue [place] Thyroid. UTI: UA with evidence of UTI. Multiple questionable allergies. Tolerating Macrobid. Discussed with the patient, wants to follow-up with PCP for final urine culture results. Hypertension: Not well controlled currently, reports well controlled at home. The patient missed home BP meds in the ED last night. Also enalapril was held this morning, resume. Continue home medications. DM: Sliding scale w/ Accu-Cheks. DVT Prophylaxis: Coumadin as above. Discharge Planning No further dizziness and ambulating with no difficulties. Symptoms could definitely be secondary to urinary infection, which the patient has treatment for as outpatient. Discharge patient to home Condition on discharge: Improved Heart healthy diabetic Diet as tolerated Regular activity Rx written: Macrobid Follow-up with primary care physician Quan Wyatt Oct 03, 2016 11:03
[2016-10-03] MEDS ORDERED: NITR100C4 PO (11:04)
[2016-10-03] MEDS ORDERED: ENALAPRIL MALEATE 10 MG TAB PO SCH (12:00)
--- NOTE | 2016-10-03 13:43 | EKG ---
Date Performed: 10/02/2016 Time Performed: 22:01:57 PTAGE: 76 years EKG: ELECTRONIC VENTRICULAR PACEMAKER Compared to previous tracing, the rhythm is paced. The und erlying rhythm in the atrium appears to be atrial fibrillation where previously it was normal Sinus r hythm . Clinical correlation will be necessary to assess the onset of atrial fibrillation. ABNORMAL RHYTHM ECG NO PREVIOUS TRACING DOCTOR: Asiya Berkowitz Interpretating Date/Time 10/03/2016 13:41:45
[2016-10-03] MEDS ORDERED: WARFARIN SOD 5 MG TAB PO SCH (16:00)
[2016-10-03] MEDS ORDERED: ATORVASTATIN 10 MG TAB PO SCH (21:00)
== END 2016-10-03 12:53 | disposition home or self-care (01) ==
LOC: NEPE 22:23 → NEDA 10-03 02:22 → NEPFCDU 10-03 04:13
PROVIDERS: ADMIT Hospitalist; ATTEND Hospitalist
DX: R42 Dizziness and giddiness (principal); E86.0 Dehydration; R11.2 Nausea with vomiting, unspecified; R94.31 Abnormal electrocardiogram [ECG] [EKG]; R00.2 Palpitations; R00.0 Tachycardia, unspecified; N39.0 Urinary tract infection, site not specified; R53.1 Weakness; R55 Syncope and collapse; R07.89 Other chest pain; I25.10 Atherosclerotic heart disease of native coronary artery without angina pectoris; I11.0 Hypertensive heart disease with heart failure; I50.9 Heart failure, unspecified; E11.9 Type 2 diabetes mellitus without complications; J44.9 Chronic obstructive pulmonary disease, unspecified; M06.9 Rheumatoid arthritis, unspecified; I48.2 Chronic atrial fibrillation; K21.9 Gastro-esophageal reflux disease without esophagitis; I77.1 Stricture of artery; G47.30 Sleep apnea, unspecified; I08.1 Rheumatic disorders of both mitral and tricuspid valves; E05.90 Thyrotoxicosis, unspecified without thyrotoxic crisis or storm; E03.9 Hypothyroidism, unspecified; M48.00 Spinal stenosis, site unspecified; Z95.0 Presence of cardiac pacemaker; Z79.01 Long term (current) use of anticoagulants; Z79.84 Long term (current) use of oral hypoglycemic drugs; Z79.899 Other long term (current) drug therapy
CPT/HCPCS: 70450; 70496; 70498; 71010; 80053; 81001; 82550; 82552; 82948; 83690; 83735; 83880; 84436; 84443; 84481; 84484; 85025; 85610; 85730; 87077; 87086; 87186; 93005; 96374; 97161; 99285; G0378; G8987; G8988; J2405; J7030; J7040; Q9967